=== PATIENT | male | born 1955 | race Caucasian/White ===

== ENCOUNTER → 2016-06-06 | Outpatient (CLI) | payer MEDICARE, MEDICAID ==
[~2016-06-06] MED LIST: ABILIFY5 MG PO; ADVAIR 500-501 EACH INH; ADVAIR DIS14 PUFF/I1 INH; ASPIRIN325 MG PO; BENTYL10 MG PO; CELEXA40 M1 PO; FLONASE16 GM NASBOTH; KLOR-CON M1010 MEQ PO; LASIX20 MG PO; LIPITOR20 M1 PO; MIRALAX17 GM PO; MOBIC15 MG PO; PROVIGIL200 MG PO; SINGULAIR10 MG PO; SYNTHROID150 MCG PO; TYLENOL325 MG PO; ULTRAM50 MG PO; VENTOLIN HFA18 GM INH; VITAMIN D250000 UNIT PO; XALATAN 0.005%2.5 ML EYEBOTH
== END | disposition short-term general hospital (02) ==
LOC: CLORTH 09:34
DX: Z47.1 Aftercare following joint replacement surgery (principal); Z96.652 Presence of left artificial knee joint

== ENCOUNTER → 2016-08-28 | Outpatient (CLI) | payer MEDICARE, MEDICAID | END | disposition short-term general hospital (02) | LOC: CLPULM 11:08 | DX: J45.909 Unspecified asthma, uncomplicated (principal); G47.33 Obstructive sleep apnea (adult) (pediatric); E66.9 Obesity, unspecified; K21.9 Gastro-esophageal reflux disease without esophagitis; M19.90 Unspecified osteoarthritis, unspecified site; F41.9 Anxiety disorder, unspecified; F32.9 Major depressive disorder, single episode, unspecified; R60.9 Edema, unspecified; K58.9 Irritable bowel syndrome, unspecified ==